=== PATIENT | male | born 1985 | race American Indian/Alaskan Native ===

== ENCOUNTER 2021-05-01 18:28 | Emergency (ER) | payer BC ==
[~2021-05-01] VITALS: Ht 177.8 cm; Wt 125.0 kg
[2021-05-01] MEDS ORDERED: DEXT1LOZ20 PO (19:24)
[2021-05-01 19:35] VITALS: BP 119/84
== END 2021-05-01 19:36 | disposition home or self-care (01) ==
LOC: ER 18:31
DX: U07.1 COVID-19 (principal); J02.9 Acute pharyngitis, unspecified
CPT/HCPCS: 99282; 99283

== ENCOUNTER 2022-05-20 18:29 | Emergency (ER) | payer BC, MEDICAID ==
[~2022-05-20] VITALS: Ht 177.8 cm; Wt 118.1 kg
[~2022-05-20 18:29] MED LIST: DEXT1LOZ20 PO
[2022-05-20 18:34] VITALS: BP 136/92
[2022-05-20] MEDS ORDERED: IBUP-1986 PO (19:23)
[2022-05-20] MEDS ORDERED: ibuprofen tablet 400 MG TABLET PO ONE (19:30)
--- NOTE | 2022-05-20 19:57 | NUR ---
THUMB SPICA SPLINT DONE BY NADEGE HEWITT, APPROVED BY PROVIDER BOOKER.
== END 2022-05-20 20:00 | disposition home or self-care (01) ==
LOC: ER 18:29
DX: G56.01 Carpal tunnel syndrome, right upper limb (principal); M79.644 Pain in right finger(s); Z72.89 Other problems related to lifestyle; Z79.899 Other long term (current) drug therapy
CPT/HCPCS: 29125; 99283